=== PATIENT | female | born 1975 | race Caucasian/White ===

== ENCOUNTER 2020-03-24 19:03 | Emergency (ER) | payer OTHER ==
[~2020-03-24] VITALS: Ht 157.5 cm; Wt 59.9 kg
[2020-03-24 19:16] VITALS: BP 180/70
--- NOTE | 2020-03-24 19:30 | NUR ---
SEEN AND EXAMINED BY TOMI WITH ORDERS AND CARRIED OUT
--- NOTE | 2020-03-24 20:15 | NUR ---
SWAB DONE AND SENT TO LAB
[2020-03-24 20:25] VITALS: BP 151/78
--- NOTE | 2020-03-24 20:25 | NUR ---
Patient discharged with v/s stable. Written and verbal after care instructions given and explained. Patient verbalized understanding. Ambulatory with steady gait. All questions addressed prior to discharge. Advised to follow up with PMD.
== END 2020-03-24 20:25 | disposition home or self-care (01) ==
LOC: MED 19:03
DX: U07.1 COVID-19 (principal); R03.0 Elevated blood-pressure reading, without diagnosis of hypertension
CPT/HCPCS: 99283; U0003